=== PATIENT | male | born 1975 | race Two or more races ===

== ENCOUNTER → 2018-09-29 | Outpatient (CLI) | payer BC ==
--- NOTE | 2018-09-29 14:36 | XR ---
EXAMINATION TYPE: XR tibia fibula LT DATE OF EXAM: 09/29/2018 COMPARISON: NONE HISTORY: Pain TECHNIQUE: Two views are submitted. FINDINGS: The osseous structures are intact. The joint spaces are preserved. IMPRESSION: 1. No acute osseous abnormality.
== END | disposition home or self-care (01) ==
LOC: RADXRMAIN 14:12
PROVIDERS: ATTEND Family Medicine
DX: M79.662 Pain in left lower leg (principal)

== ENCOUNTER → 2019-11-11 | Outpatient (CLI) | payer BC ==
--- NOTE | 2019-11-11 11:51 | XR ---
EXAMINATION TYPE: XR lumbar spine 2 or 3V DATE OF EXAM: 11/11/2019 CLINICAL HISTORY: Pain of lower back. TECHNIQUE: Frontal and lateral views of the lumbar spine obtained. COMPARISON: Lumbar spine radiograph 10/08/2013 FINDINGS: There are 5 lumbar type vertebral bodies identified. The lumbar spine shows satisfactory alignment without evidence of acute fracture or dislocation. Vertebral body heights and disk space he ights are within normal limits. There is mild to moderate lateral and anterior osteophytic spurring f rom L3 through L5 which is increased or new versus 2014 radiograph comparison. The oblique images danii ear within normal limits. The overlying soft tissue appears unremarkable. IMPRESSION: 1. No acute fracture or dislocation is seen in the lumbar spine. 2. Increased multilevel degenerative osteophytosis as above.
--- NOTE | 2019-11-11 15:03 | XR ---
EXAMINATION TYPE: XR ankle complete RT DATE OF EXAM: 11/11/2019 CLINICAL HISTORY: Pain. Multiple injuries of the last couple of years. TECHNIQUE: Frontal, lateral and oblique images of the right ankle are obtained. COMPARISON: None. FINDINGS: There is no acute fracture/dislocation evident in the right ankle. The ankle mortise appe ars within normal limits. Achilles and plantar enthesophytes. The overlying soft tissue appears unre markable. IMPRESSION: 1. There is no acute fracture or dislocation in the right ankle. 2. Achilles enthesophyte. 3. Plantar enthesophyte.
== END | disposition home or self-care (01) ==
LOC: RADXRMAIN 08:02
PROVIDERS: ATTEND Family Medicine
DX: M51.36 Other intervertebral disc degeneration, lumbar region (principal); M76.61 Achilles tendinitis, right leg; M77.31 Calcaneal spur, right foot
CPT/HCPCS: 72100

== ENCOUNTER 2020-12-24 20:05 | Emergency (ER) | payer SELFPAY ==
[2020-12-24] MEDS ORDERED: SODIUM CHLORIDE 0.9% 1,000 ML IV STA (20:41)
--- NOTE | 2020-12-24 20:43 | ED ---
General Adult HPI - General Source: patient, police, EMS Mode of arrival: EMS <Hubert Narayan - Last Filed: 12/24/20 23:19> <Chente Hemphill - Last Filed: 12/25/20 01:24> - General Chief complaint: Alcohol Stated complaint: ETOH Time Seen by Provider: 12/24/20 20:21 - History of Present Illness Initial comments: Patient presents to the ED by ambulance for evaluation after being found intoxicated. Patient admits to drinking "two beers". Patient denies any illicit drug use or medication abuse, although EMS reports that the patient may have "snorted Vicodin". Patient denies having any symptoms at this time. Patient denies having any pain, trauma or injury, fever or chills, headache, chest pain, dyspnea, dizziness, abdominal pain, nausea or vomiting, diarrhea, bloody or melanotic stool, dysuria or urinary symptoms, suicidal ideations, homicidal ideations, hallucinations, or any other symptoms or complaints. History from the patient is however limited secondary to alcohol intoxication. (Hubert Narayan) - Related Data Home Medications Medication Instructions Recorded Confirmed HYDROcodone/APAP 10-325MG [[place] 1 tab PO Q12H PRN 12/24/20 12/24/20 10-325] diazePAM [Valium] 5 mg PO DAILY 12/24/20 12/24/20 Allergies Allergy/AdvReac Type Severity Reaction Status Date / Time No Known Allergies Allergy Verified 12/24/20 21:07 Review of Systems ROS Other: All systems not noted in ROS Statement are negative. <Hubert Narayan - Last Filed: 12/24/20 23:19> ROS Other: All systems not noted in ROS Statement are negative. <Chente Hemphill - Last Filed: 12/25/20 01:24> ROS Statement: Those systems with pertinent positive or pertinent negative responses have been documented in the HPI. Past Medical History Past Medical History: Unable to Obtain History of Any Multi-Drug Resistant Organisms: Unobtainable Past Surgical History: Unable to Obtain Past Psychological History: Unable to Obtain Smoking Status: Current every day smoker Past Alcohol Use History: Abuse, Heavy Past Drug Use History: None Reported <Hubert Narayan - Last Filed: 12/24/20 23:19> General Exam Limitations: no limitations General appearance: alert, appears intoxicated, other (Patient smells of alcohol) Head exam: Present: atraumatic, normocephalic Eye exam: Present: PERRL, EOMI ENT exam: Present: mucous membranes moist Neck exam: Present: other (Trachea is in midline). Absent: tenderness Respiratory exam: Present: normal lung sounds bilaterally. Absent: respiratory distress, wheezes, rales, rhonchi, stridor Cardiovascular Exam: Present: regular rate, normal rhythm, normal heart sounds, other (Normal radial pulses bilaterally) GI/Abdominal exam: Present: soft. Absent: distended, tenderness, guarding Extremities exam: Present: full ROM. Absent: tenderness, pedal edema Back exam: Present: normal inspection. Absent: tenderness Neurological exam: Present: alert, oriented X3, CN II-XII intact, other (Slurred speech). Absent: motor sensory deficit Psychiatric exam: Present: normal affect, normal mood Skin exam: Present: warm, dry, intact, normal color <Hubert Narayan - Last Filed: 12/24/20 23:19> Course <Hubert Narayan - Last Filed: 12/24/20 23:19> Vital Signs 12/24/20 12/24/20 22:14 23:49 Pulse Rate 65 Respiratory 16 18 Rate Blood Pressure 106/69 O2 Sat by Pulse 93 L Oximetry - Reevaluation(s) Reevaluation #1: 12/24/20 23:19 Patient was endorsed to ED physician Dr. Hemphill (secondary to end of my shift) with EPS nurse's evaluation still pending. Dr. Hemphill to take over care of the patient at this time. Of note, patient's alcohol level is 153, and his acetaminophen and salicylate levels are undetectable. (Hubert Narayan) Medical Decision Making - Lab Data Result diagrams: 12/24/20 21:10 12/24/20 21:10 <Hubert Narayan - Last Filed: 12/24/20 23:19> - Lab Data Result diagrams: 12/24/20 21:10 12/24/20 21:10 <Chente Hemphill - Last Filed: 12/25/20 01:24> - Lab Data Lab Results 0912/24/20 12/24/20 Range/Units 21:10 21:10 21:10 WBC 5.1 (3.8-10.6) k/uL RBC 4.43 (4.30-5.90) m/uL Hgb 14.3 (13.0-17.5) gm/dL Hct 39.9 (39.0-53.0) % MCV 90.1 (80.0-100.0) fL MCH 32.3 (25.0-35.0) pg MCHC 35.8 (31.0-37.0) g/dL RDW 12.7 (11.5-15.5) % Plt Count 186 (150-450) k/uL MPV 7.2 Neutrophils % 50 % Lymphocytes % 44 % Monocytes % 3 % Eosinophils % 1 % Basophils % 1 % Neutrophils # 2.6 (1.3-7.7) k/uL Lymphocytes # 2.2 (1.0-4.8) k/uL Monocytes # 0.1 (0-1.0) k/uL Eosinophils # 0.1 (0-0.7) k/uL Basophils # 0.0 (0-0.2) k/uL PT (9.0-12.0) sec INR (<1.2) APTT (22.0-30.0) sec Sodium 146 H (137-145) mmol/L Potassium 3.5 (3.5-5.1) mmol/L Chloride 114 H (98-107) mmol/L Carbon Dioxide 24 (22-30) mmol/L Anion Gap 8 mmol/L BUN 14 (9-20) mg/dL Creatinine 0.81 (0.66-1.25) mg/dL Est GFR (CKD-EPI)AfAm >90 (>60 ml/min/1.73 sqM) Est GFR (CKD-EPI)NonAf >90 (>60 ml/min/1.73 sqM) Glucose 105 H (74-99) mg/dL Calcium 9.1 (8.4-10.2) mg/dL Total Bilirubin 0.5 (0.2-1.3) mg/dL AST 36 (17-59) U/L ALT 27 (4-49) U/L Alkaline Phosphatase 79 (38-126) U/L Total Protein 6.8 (6.3-8.2) g/dL Albumin 3.9 (3.5-5.0) g/dL Salicylates <1.0 mg/dL Urine Opiates Screen Detected H (NotDetected) Ur Oxycodone Screen Not Detected (NotDetected) Urine Methadone Screen Not Detected (NotDetected) Ur Propoxyphene Screen Not Detected (NotDetected) Acetaminophen <10.0 ug/mL Ur Barbiturates Screen Not Detected (NotDetected) U Tricyclic Antidepress Not Detected (NotDetected) Ur Phencyclidine Scrn Not Detected (NotDetected) Ur Amphetamines Screen Not Detected (NotDetected) U Methamphetamines Scrn Not Detected (NotDetected) U Benzodiazepines Scrn Detected H (NotDetected) Urine Cocaine Screen Not Detected (NotDetected) U Marijuana (THC) Screen Not Detected (NotDetected) Serum Alcohol 153 mg/dL 12/24/20 Range/Units 21:10 WBC (3.8-10.6) k/uL RBC (4.30-5.90) m/uL Hgb (13.0-17.5) gm/dL Hct (39.0-53.0) % MCV (80.0-100.0) fL MCH (25.0-35.0) pg MCHC (31.0-37.0) g/dL RDW (11.5-15.5) % Plt Count (150-450) k/uL MPV Neutrophils % % Lymphocytes % % Monocytes % % Eosinophils % % Basophils % % Neutrophils # (1.3-7.7) k/uL Lymphocytes # (1.0-4.8) k/uL Monocytes # (0-1.0) k/uL Eosinophils # (0-0.7) k/uL Basophils # (0-0.2) k/uL PT 9.8 (9.0-12.0) sec INR 0.9 (<1.2) APTT 24.6 (22.0-30.0) sec Sodium (137-145) mmol/L Potassium (3.5-5.1) mmol/L Chloride (98-107) mmol/L Carbon Dioxide (22-30) mmol/L Anion Gap mmol/L BUN (9-20) mg/dL Creatinine (0.66-1.25) mg/dL Est GFR (CKD-EPI)AfAm (>60 ml/min/1.73 sqM) Est GFR (CKD-EPI)NonAf (>60 ml/min/1.73 sqM) Glucose (74-99) mg/dL Calcium (8.4-10.2) mg/dL Total Bilirubin (0.2-1.3) mg/dL AST (17-59) U/L ALT (4-49) U/L Alkaline Phosphatase (38-126) U/L Total Protein (6.3-8.2) g/dL Albumin (3.5-5.0) g/dL Salicylates mg/dL Urine Opiates Screen (NotDetected) Ur Oxycodone Screen (NotDetected) Urine Methadone Screen (NotDetected) Ur Propoxyphene Screen (NotDetected) Acetaminophen ug/mL Ur Barbiturates Screen (NotDetected) U Tricyclic Antidepress (NotDetected) Ur Phencyclidine Scrn (NotDetected) Ur Amphetamines Screen (NotDetected) U Methamphetamines Scrn (NotDetected) U Benzodiazepines Scrn (NotDetected) Urine Cocaine Screen (NotDetected) U Marijuana (THC) Screen (NotDetected) Serum Alcohol mg/dL Disposition <Hubert Narayan - Last Filed: 12/24/20 23:19> Is patient prescribed a controlled substance at d/c from ED?: No <Chente Hemphill - Last Filed: 12/25/20 01:24> Clinical Impression: Alcohol intoxication Disposition: HOME SELF-CARE Condition: Fair Instructions (If sedation given, give patient instructions): Alcohol Intoxication (ED) Referrals: Arturo Briceno MD [Primary Care Provider] - 1-2 days
[2020-12-24 21:37] LABS: Amphetamine Screen,Urine Not Detected (NotDetected); Barbiturate Screen,Urine Not Detected (NotDetected); Benzodiazepines Screen,Urine Detected (NotDetected); Cocaine Screen,Urine Not Detected (NotDetected); Methadone Screen, Urine Not Detected (NotDetected); Opiate Screen,Urine Detected (NotDetected); Oxycodone Screen, Urine Not Detected (NotDetected); Phencyclidine Screen,Urine Not Detected (NotDetected); Tricyclic Antidepressant,Urine Not Detected (NotDetected); Urn Cannabinoid Scrn Not Detected (NotDetected)
[2020-12-24 22:18] LABS: Basophils % (A) 1 %; Eosinophils # (A) 0.1 k/uL (0-0.7); Eosinophils % (A) 1 %; HCT 39.9 % (39.0-53.0); HGB 14.3 gm/dL (13.0-17.5); Lymphocytes # (A) 2.2 k/uL (1.0-4.8); Lymphocytes % (A) 44 %; MCH 32.3 pg (25.0-35.0); MCHC 35.8 g/dL (31.0-37.0); MCV 90.1 fL (80.0-100.0); Mean Platelet Volume 7.2; Monocytes # (A) 0.1 k/uL (0-1.0); Monocytes % (A) 3 %; Neutrophils # (A) 2.6 k/uL (1.3-7.7); Neutrophils % (A) 50 %; Platelet Count 186 k/uL (150-450); RBC 4.43 m/uL (4.30-5.90); RDW 12.7 % (11.5-15.5); WBC 5.1 k/uL (3.8-10.6)
[2020-12-24 22:31] LABS: ALT 27 U/L (4-49); AST 36 U/L (17-59); Acetaminophen <10.0 ug/mL; African American GFR (CKD) >90 (>60 ml/min/1.73 sqM); Albumin 3.9 g/dL (3.5-5.0); Alkaline Phosphatase 79 U/L (38-126); Anion Gap 8 mmol/L; Blood Urea Nitrogen 14 mg/dL (9-20); Calcium 9.1 mg/dL (8.4-10.2); Carbon Dioxide 24 mmol/L (22-30); Chloride 114 mmol/L (98-107); Glucose 105 mg/dL (74-99); Non-African American GFR(CKD) >90 (>60 ml/min/1.73 sqM); Potassium 3.5 mmol/L (3.5-5.1); Salicylate <1.0 mg/dL; Sodium 146 mmol/L (137-145); Total Bilirubin 0.5 mg/dL (0.2-1.3); Total Protein 6.8 g/dL (6.3-8.2)
[2020-12-24 22:37] LABS: Alcohol 153 mg/dL
[2020-12-24 22:47] LABS: INR 0.9 (<1.2); Partial Thromboplastin Time 24.6 sec (22.0-30.0); Prothrombin Time 9.8 sec (9.0-12.0)
[2020-12-24 23:51] VITALS: RESP 18
[2020-12-25 01:51] VITALS: BP 173/105; PULSE 87; TEMP 98.7
== END 2020-12-25 01:51 | disposition home or self-care (01) ==
LOC: EC 20:05
DX: F10.129 Alcohol abuse with intoxication, unspecified (principal); F17.200 Nicotine dependence, unspecified, uncomplicated; Y90.6 Blood alcohol level of 120-199 mg/100 ml
CPT/HCPCS: 36415; 80053; 80143; 80179; 80306; 80320; 85025; 85610; 85730; 96360; 99284